=== PATIENT | female | born 1970 ===

== ENCOUNTER 2018-02-08 13:24 | Outpatient (RCR) | payer SELFPAY | END 2018-02-11 | disposition home or self-care (01) | LOC: WCC 13:24 | DX: T86.828 Other complications of skin graft (allograft) (autograft) (principal); Z91.041 Radiographic dye allergy status; Z90.13 Acquired absence of bilateral breasts and nipples; Z85.3 Personal history of malignant neoplasm of breast | CPT/HCPCS: G0277 ×2 ==

== ENCOUNTER 2018-02-08 14:41 | Outpatient (RCR) | payer OTHER | END 2018-02-11 | disposition home or self-care (01) | LOC: WCC 14:41 | DX: T86.828 Other complications of skin graft (allograft) (autograft) (principal); Z91.041 Radiographic dye allergy status; Z85.3 Personal history of malignant neoplasm of breast; Z90.13 Acquired absence of bilateral breasts and nipples | CPT/HCPCS: 99204 ==

== ENCOUNTER 2018-02-14 14:07 | Outpatient (RCR) | payer OTHER | END 2018-03-13 | disposition home or self-care (01) | LOC: WCC 14:07 | DX: T86.828 Other complications of skin graft (allograft) (autograft) (principal); Z91.041 Radiographic dye allergy status; Z85.3 Personal history of malignant neoplasm of breast; Z90.13 Acquired absence of bilateral breasts and nipples | CPT/HCPCS: G0277 ×16 ==

== ENCOUNTER 2018-03-14 09:50 | Outpatient (RCR) | payer OTHER | END 2018-04-13 | disposition home or self-care (01) | LOC: WCC 09:50 | DX: L89.610 Pressure ulcer of right heel, unstageable (principal); I70.234 Atherosclerosis of native arteries of right leg with ulceration of heel and midfoot; R26.89 Other abnormalities of gait and mobility; E11.51 Type 2 diabetes mellitus with diabetic peripheral angiopathy without gangrene; Z79.01 Long term (current) use of anticoagulants; Z95.0 Presence of cardiac pacemaker; M06.9 Rheumatoid arthritis, unspecified ==